=== PATIENT | female | born 1940 | race Caucasian/White ===

== ENCOUNTER 2018-01-17 07:07 | Outpatient (CLI) | payer MEDICARE, OTHER ==
--- NOTE | 2018-01-17 08:53 | RAD ---
BARIUM SWALLOW: DATE: 01/17/18. COMPARISON: None. HISTORY: Dysphagia. FINDINGS: First Coat Sander frontal radiograph chest demonstrates no pneumothorax, pleural fluid, focal consolidation, or a lveolar edema. Heart and mediastinal contours appear grossly unremarkable. The patient underwent a double-contrast barium esophagram. There is a small hiatal hernia noted. Th ere is significant gastroesophageal reflux when the patient is in the supine position, which extends to the upper thoracic esophagus at the level of the thoracic inlet. There is a focal area of slight contour irregularity involving the upper esophagus in the region of t he aortic arch. When the patient swallowed a barium tablet, there was holdup in this region. No dis crete mucosal abnormality is seen. Perhaps this is secondary to extrinsic compression. Recommend fol lowup CT examination with IV contrast for further assessment. 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 There is degenerative disk disease at C4-5 and C5-6 with disk space narrowing and anterior osteophyte formation. IMPRESSION: 1. Small sliding hiatal hernia with prominent gastroesophageal reflux. 2. Area of contour irregularity involving the upper thoracic esophagus at the level of the aortic ar ch, for which CT examination with IV contrast is advised to evaluate for an extrinsic compression. 3. 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 CODE T POS: CHELLY
== END 2018-01-17 07:08 | disposition home or self-care (01) ==
LOC: RAD 07:07
PROVIDERS: ATTEND Family Medicine
DX: R13.10 Dysphagia, unspecified (principal); K44.9 Diaphragmatic hernia without obstruction or gangrene; K21.9 Gastro-esophageal reflux disease without esophagitis; K22.2 Esophageal obstruction
CPT/HCPCS: 74220

== ENCOUNTER 2018-02-04 12:22 | Outpatient (CLI) | payer MEDICARE, OTHER ==
[~2018-02-04 12:22] MED LIST: ISOVUE-370 76%-LOCM 1 ML ONE
== END 2018-02-04 12:23 | disposition home or self-care (01) ==
LOC: BICCT 12:22
PROVIDERS: ATTEND Family Medicine
DX: R93.3 Abnormal findings on diagnostic imaging of other parts of digestive tract (principal)
CPT/HCPCS: 71260; 82565

== ENCOUNTER 2018-11-30 10:41 | Outpatient (CLI) | payer MEDICARE, OTHER | END 2018-11-30 10:42 | disposition home or self-care (01) | PROVIDERS: ATTEND Otolaryngology Plastic Surgery within the Head & Neck | DX: R13.13 Dysphagia, pharyngeal phase (principal); J38.7 Other diseases of larynx | CPT/HCPCS: 74230 ==

== ENCOUNTER 2019-03-08 08:37 | Outpatient (CLI) | payer MEDICARE, OTHER ==
--- NOTE | 2019-03-10 12:58 | RAD ---
Modified barium swallow HISTORY: Dysphagia. Feeding difficulties. FINDINGS: Exam was performed by speech pathology with multiple consistencies. Video review is availab le and demonstrates good bolus formation and retropulsion. Good initiation of swallowing. No evidence of penetration or aspiration. Good clearance. Mildly prominent upper esophageal sphincter without significant holdup. Fluoroscopy time 147 seconds. Please see separate detailed report from speech pathology
== END 2019-03-08 08:38 | disposition home or self-care (01) ==
PROVIDERS: ATTEND Otolaryngology Plastic Surgery within the Head & Neck
DX: R13.10 Dysphagia, unspecified (principal); R63.3 Feeding difficulties
CPT/HCPCS: 74230

== ENCOUNTER 2020-07-17 13:59 | Outpatient (CLI) | payer MEDICARE ==
--- NOTE | 2020-07-17 18:48 | BD ---
EXAM: Bone densitometry using DEXA HISTORY: 80 yo female. Screening for postmenopausal osteoporosis FINDINGS: L1--bone mineral density 1.069 g/sq cm; T score 0.7 ; Z score 3.0 L2--bone mineral density 1.246 g/sq cm; T score 2.0 ; Z score 4.6 L3--bone mineral density 1.244 g/sq cm; T score 1.5 ; Z score 4.2 L4--bone mineral density 1.218 g/sq cm; T score 1.4 ; Z score 4.2 Total L1-L4--bone mineral density 1.197 g/sq cm; T score 1.4 ; Z score 4.0 Left femoral neck--bone mineral density0.943; T score 0.8 ; Z score 3.1 Total proximal left femur--bone mineral density 1.171; T score 1.9 ; Z score 3.9 IMPRESSION: Normal BMD
== END 2020-07-17 14:00 | disposition home or self-care (01) ==
LOC: BICMAMMO 13:59
PROVIDERS: ATTEND Family Medicine
DX: Z13.820 Encounter for screening for osteoporosis (principal); Z78.0 Asymptomatic menopausal state
CPT/HCPCS: 77080

== ENCOUNTER 2022-09-10 08:40 | Outpatient (CLI) | payer MEDICARE | END 2022-09-10 08:41 | disposition home or self-care (01) | LOC: BICMAMMO 08:40 | PROVIDERS: ATTEND Family Medicine | DX: Z13.820 Encounter for screening for osteoporosis (principal); E28.39 Other primary ovarian failure; Z78.0 Asymptomatic menopausal state | CPT/HCPCS: 77080 ==

== ENCOUNTER 2023-11-04 07:43 | Outpatient (CLI) | payer MEDICARE ==
[2023-11-04 09:10] LABS: #Basophils 0.03 10x3/uL (0.0-0.2); #Eosinphils 0.19 10x3/uL (0.0-0.5); #Neutrophils 3.07 10x3/uL (1.5-8.4); %Basophils 0.5 % (0.0-2.0); %Eosinophils 3.1 % (0.0-6.0); %Lymphocytes 37.5 % (18.0-47.0); %Monocytes 8.2 % (0.0-10.0); %Neutrophils 50.4 % (40.0-75.0); Hematocrit 40.8 % (34.9-44.5); Hemoglobin 13.9 g/dL (12.0-15.5); Mean Corpuscular HGB CONC 34.1 g/dL (32.0-36.0); Mean Corpuscular Hemoglobin 30.1 pg (27.0-33.0); Mean Corpuscular Volume 88.3 fl (81.6-98.3); Mean Platelet Volume 9.9 fl (7.4-10.4); Platelet Count 222 10x3/uL (150-450); RBC Distribution Width 12.6 % (11.5-14.5); Red Blood Cell (RBC) Count 4.62 10x6/uL (3.90-5.03); White Blood Cell (WBC) Count 6.1 10x3/uL (3.5-10.5)
[2023-11-04 09:57] LABS: Anion Gap 11 mmol/L (10-20); BUN (Urea Nitrogen) 20 mg/dL (9.8-20.1); Calc. Creatinine Clearance 0 mL/min (70-130); Calcium 9.5 mg/dL (7.8-10.44); Carbon Dioxide 29 mmol/L (23-31); Chloride 106 mmol/L (98-107); Estimated GFR 53; Glucose 87 mg/dL (83-110); Potassium 4.5 mmol/L (3.5-5.1); Sodium 141 mmol/L (136-145)
== END 2023-11-04 07:44 | disposition home or self-care (01) ==
LOC: LABBT 07:43
PROVIDERS: ATTEND Surgery
DX: Z01.818 Encounter for other preprocedural examination (principal); K40.90 Unilateral inguinal hernia, without obstruction or gangrene, not specified as recurrent
CPT/HCPCS: 80048; 85025; 93005; 93010

== ENCOUNTER 2025-07-31 08:07 | Outpatient (CLI) | payer OTHER ==
[2025-07-31] MEDS ORDERED: Barium Sulfate 96% 176 GM BOT (xray ONLY) ONE (08:28)
[2025-07-31] MEDS ORDERED: E-Z-HD 98% W/W 340GM BOT (x-ray ONLY) ONE (08:28)
== END 2025-07-31 08:08 | disposition home or self-care (01) ==
LOC: RAD 08:07
PROVIDERS: ATTEND Otolaryngology Plastic Surgery within the Head & Neck
DX: R13.10 Dysphagia, unspecified (principal); K44.9 Diaphragmatic hernia without obstruction or gangrene; R93.1 Abnormal findings on diagnostic imaging of heart and coronary circulation
CPT/HCPCS: 74220